=== PATIENT | female | born 1960 | race Caucasian/White ===

== ENCOUNTER 2016-09-16 19:41 | Emergency (ER) | payer MEDICAID ==
[~2016-09-16] VITALS: Ht 149.9 cm; Wt 99.8 kg
[2016-09-16] MEDS ORDERED: CLARITIN10 MG PO (20:40)
[2016-09-16] MEDS ORDERED: GEODON60 MG PO (20:41)
[2016-09-16] MEDS ORDERED: LAMICTAL25 MG PO ×2 (20:42→20:59)
[2016-09-16] MEDS ORDERED: MOBIC15 MG PO (20:42)
[2016-09-16] MEDS ORDERED: MULTIVITAMINS1 EAC1 PO (20:45)
[2016-09-16] MEDS ORDERED: TRAZODONE HCL150 MG PO (20:55)
[2016-09-16] MEDS ORDERED: NEURONTIN600 MG PO (20:57)
[2016-09-16] MEDS ORDERED: VALIUM5 MG PO (21:01)
[2016-09-16] MEDS ORDERED: PAIN & FEVER325 MG PO (21:06)
[2016-09-16] MEDS ORDERED: PEPCID40 MG PO (21:07)
[2016-09-16] MEDS ORDERED: AMITIZA24 MCG PO (21:07)
[2016-09-16] MEDS ORDERED: DILAUDID4 MG PO (21:08)
[2016-09-16] MEDS ORDERED: IMITREX100 MG PO (21:09)
[2016-09-16] MEDS ORDERED: DUONEB 3.0-0.5 M3 ML INH (21:10)
[2016-09-16] MEDS ORDERED: ZANAFLEX4 MG PO (21:11)
[2016-09-16] MEDS ORDERED: REFRESH PLUS1 EACH EYEBOTH (21:12)
== END 2016-09-16 22:10 | disposition short-term general hospital (02) ==
LOC: ER 19:41
DX: J44.9 Chronic obstructive pulmonary disease, unspecified (principal); F32.9 Major depressive disorder, single episode, unspecified; M25.562 Pain in left knee; M25.561 Pain in right knee; I10 Essential (primary) hypertension; F17.210 Nicotine dependence, cigarettes, uncomplicated; Z98.890 Other specified postprocedural states; Z91.041 Radiographic dye allergy status; Z90.49 Acquired absence of other specified parts of digestive tract; Z88.0 Allergy status to penicillin; Z88.1 Allergy status to other antibiotic agents; Z91.013 Allergy to seafood
CPT/HCPCS: J2930